=== PATIENT | male | born 1985 | race African-American/Black ===

== ENCOUNTER 2017-03-02 01:32 | Emergency (ER) | payer OTHER ==
[~2017-03-02] VITALS: Ht 177.8 cm; Wt 95.0 kg
[~2017-03-02 01:32] MED LIST: ALBU1AER INH; BENZ100 PO; IBUP800T23 PO; OSEL75 PO; ZOFR4TAB3 SL
[2017-03-02 01:37] VITALS: BP 132/92; PULSE 76; RESP 16; TEMP 98.4; O2SAT 98
[2017-03-02 01:52] VITALS: BP 127/74; PULSE 77; RESP 18; O2SAT 98
[2017-03-02] MEDS ORDERED: SODIUM CHLORIDE 0.9% FLUSH 10 ML FLUSH IVF PRN (02:30)
[2017-03-02] MEDS ORDERED: MORPHINE SULFATE 4 MG/ML INJ IV PUSH ONE (02:30)
[2017-03-02] MEDS ORDERED: SODIUM CHLORID 0.9% 500 ML INJ 500 ML IV ONE (02:30)
[2017-03-02] MEDS ORDERED: ASPIRIN 325 MG TAB PO ONE (02:30)
[2017-03-02] MEDS: NITROGLYCERIN 0.4 MG SL 25 TABS/BTL SL SCH ×3 (02:34→02:55)
[2017-03-02 02:39] VITALS: BP 107/62; PULSE 85; RESP 18
[2017-03-02 02:48] LABS: AUTOMATED NEUTROPHIL # 4.3 TH/MM3 (1.8-7.7); BASOPHIL # 0.1 TH/MM3 (0-0.2); BASOPHIL % 0.8 % (0.0-2.0); EOSINOPHIL # 0.4 TH/MM3 (0-0.4); EOSINOPHIL % 5.6 % (0.0-4.0); HEMATOCRIT 42.1 % (39.0-51.0); HEMO FLAGS DIFF FINAL; LYMPHOCYTE # 2.4 TH/MM3 (1.0-4.8); MEAN CORPUSCULAR HEMOGLOBIN 30.1 PG (27.0-34.0); MEAN CORPUSCULAR HGB CONC 34.2 % (32.0-36.0); MONO % 7.4 % (0.0-8.0); NEUT % 55.2 % (16.0-70.0); PLATELET COUNT 227 TH/MM3 (150-450); RED BLOOD COUNT 4.79 MIL/MM3 (4.50-5.90); RED CELL DISTRIBUTION WIDTH 13.1 % (11.6-17.2); WHITE BLOOD COUNT 7.8 TH/MM3 (4.0-11.0)
[2017-03-02 02:51] VITALS: BP 125/58; PULSE 79; RESP 18
[2017-03-02 03:04] LABS: APTT (PATIENT) 25.4 SEC (24.3-30.1); PROTHROMBIN TIME - PATIENT 11.4 SEC (9.8-11.6)
[2017-03-02 03:05] LABS: ANION GAP 7 MEQ/L (5-15); BLOOD UREA NITROGEN 9 MG/DL (7-18); CHLORIDE 108 MEQ/L (98-107); GLOMERULAR FILTRATION RATE 101 ML/MIN (>89); POTASSIUM 3.5 MEQ/L (3.5-5.1); SODIUM (NA) 142 MEQ/L (136-145)
[2017-03-02 03:08] LABS: CREATINE KINASE 521 U/L (39-308)
--- NOTE | 2017-03-02 03:10 | PD ---
HPI Chief Complaint: Chest Pain Time Seen by Provider: 01:47 Travel History International Travel<30 days: No Contact w/Intl Traveler<30days: No Traveled to known affect area: No History of Present Illness HPI 32-year-old male complains of left chest pain. The onset occurred at rest. He states it is severe. There is radiation to the shoulder and left neck. Duration a few hours. It woke him up from sleep. He denies drugs and alcohol abuse. He denies tobacco. He reports minimal shortness of breath. At most of maximum inspiration he has mild chest pain. No trauma. No excessive exercise. [facility] Past Medical History Medical History: Denies Significant Hx Diminished Hearing: No Influenza Vaccination: No Social History Alcohol Use: Yes Tobacco Use: No Substance Use: No Allergies-Medications (Allergen,Severity, Reaction): Coded Allergies: No Known Allergies (Verified , 03/02/17) Reported Meds & Prescriptions Reported Meds & Active Scripts Active No Active Prescriptions or Reported Medications Review of Systems Except as stated in HPI: all other systems reviewed are Neg Physical Exam Narrative GENERAL: 32 yo M, WNWD, mild distress SKIN: Warm and dry. HEAD: Atraumatic. Normocephalic. EYES: Pupils equal and round. No scleral icterus. No injection or drainage. ENT: No nasal bleeding or discharge. Mucous membranes pink and moist. NECK: Trachea midline. No JVD. CARDIOVASCULAR: Regular rate and rhythm. TTP L chest. RESPIRATORY: No accessory muscle use. Clear to auscultation. Breath sounds equal bilaterally. GASTROINTESTINAL: Abdomen soft, non-tender, nondistended. Hepatic and splenic margins not palpable. MUSCULOSKELETAL: Extremities without clubbing, cyanosis, or edema. No obvious deformities. + Pain with pectoralis flexion. NEUROLOGICAL: Awake and alert. No obvious cranial nerve deficits. Motor grossly within normal limits. Five out of 5 muscle strength in the arms and legs. Normal speech. PSYCHIATRIC: Appropriate mood and affect; insight and judgment normal. Data Data Last Documented VS Vital Signs Date Time Temp Pulse Resp B/P Pulse Ox O2 Delivery O2 Flow Rate FiO2 03/02/17 03:37 79 18 115/68 100 03/02/17 01:52 Room Air 03/02/17 01:37 98.4 VS reviewed Orders Electrocardiogram (03/02/17 02:24) Basic Metabolic Panel (Bmp) (03/02/17 02:24) Ckmb (Isoenzyme) Profile (03/02/17 02:24) Complete Blood Count With Diff (03/02/17 02:24) Magnesium (Mg) (03/02/17 02:24) Prothrombin Time / Inr (Pt) (03/02/17 02:24) Act Partial Throm Time (Ptt) (03/02/17 02:24) Troponin I (03/02/17 02:24) Chest, Single Ap (03/02/17 02:24) Ecg Monitoring (03/02/17 02:24) Iv Access Insert/Monitor (03/02/17 02:24) Oximetry (03/02/17 02:24) Oxygen Administration (03/02/17 02:24) Aspirin (Aspirin) (03/02/17 02:30) Morphine Inj (Morphine Inj) (03/02/17 02:30) Sodium Chloride 0.9% Flush (Ns Flush) (03/02/17 02:30) Nitroglycerin Sl (Nitrostat Sl) (03/02/17 02:30) Sodium Chlorid 0.9% 500 Ml Inj (Ns 500 M (03/02/17 02:30) CKMB (03/02/17 02:30) CKMB% (03/02/17 02:30) Labs Laboratory Tests Test 03/02/17 02:30 White Blood Count 7.8 TH/MM3 Red Blood Count 4.79 MIL/MM3 Hemoglobin 14.4 GM/DL Hematocrit 42.1 % Mean Corpuscular Volume 88.0 FL Mean Corpuscular Hemoglobin 30.1 PG Mean Corpuscular Hemoglobin 34.2 % Concent Red Cell Distribution Width 13.1 % Platelet Count 227 TH/MM3 Mean Platelet Volume 8.7 FL Neutrophils (%) (Auto) 55.2 % Lymphocytes (%) (Auto) 31.0 % Monocytes (%) (Auto) 7.4 % Eosinophils (%) (Auto) 5.6 % Basophils (%) (Auto) 0.8 % Neutrophils # (Auto) 4.3 TH/MM3 Lymphocytes # (Auto) 2.4 TH/MM3 Monocytes # (Auto) 0.6 TH/MM3 Eosinophils # (Auto) 0.4 TH/MM3 Basophils # (Auto) 0.1 TH/MM3 CBC Comment DIFF FINAL Differential Comment Prothrombin Time 11.4 SEC Prothromb Time International 1.0 RATIO Ratio Activated Partial 25.4 SEC Thromboplast Time Sodium Level 142 MEQ/L Potassium Level 3.5 MEQ/L Chloride Level 108 MEQ/L Carbon Dioxide Level 27.0 MEQ/L Anion Gap 7 MEQ/L Blood Urea Nitrogen 9 MG/DL Creatinine 1.03 MG/DL Estimat Glomerular Filtration 101 ML/MIN Rate Random Glucose 90 MG/DL Calcium Level 8.9 MG/DL Magnesium Level 2.0 MG/DL Total Creatine Kinase 521 U/L Creatine Kinase MB 2.0 NG/ML Creatine Kinase MB % 0.4 % Troponin I LESS THAN 0.02 NG/ML MDM Medical Decision Making Medical Screen Exam Complete: Yes Emergency Medical Condition: Yes Medical Record Reviewed: Yes Differential Diagnosis NSTEMI, unstable angina, coronary vasospasm, PE, PTX, aortic dissection, pericarditis, myocarditis, endocarditis, PNA, esophageal disease, aneurysm, musculoskeletal etiologies, anxiety, cocaine/sympathomimetic abuse Narrative Course EKG reveals a sinus rhythm, rate 77 with early repolarization morphology CBC & BMP Diagram 03/02/17 02:30 Tn < 0.02 Last 24 hours Impressions Chest X-Ray 03/02/17 0224 Signed Impressions: Service Date/Time: Thursday, March 02, 2017 02:43 - CONCLUSION: No acute disease. No significant change has occurred. Chris Colvin MD Reassessment at 325AM, the patient is resting comfortably and feels better, is alert and in no distress. The patients results and examination findings were discussed. The repeat examination is unremarkable and benign. The history, exam , diagnostic testing, and current condition do not suggest any significant pathology to warrant further testing, continued ED treatment, admission, or surgical evaluation at this point. The vital signs have been stable. The patient does not have uncontrollable pain, intractable vomiting, or other significant symptoms. The patient's condition is stable and appropriate for discharge. The patient will pursue further outpatient evaluation with a primary care physician or other designated or consulting physician as indicated in the discharge instructions. The patient expressed understanding and was agreeable with this plan. Diagnosis Primary Impression: Chest pain Qualified Code: R07.9 - Chest pain, unspecified type Referrals: Primary Care Physician 2 days Additional Instructions: You have a choice when it comes to health care, and we are glad that you chose [facility]. Hopefully, we have met your expectations on today's visit. You are welcome to return to [facility] at any time, as we are committed to meeting the health care needs of our community. Med/Other Pt SpecificInfo: No Change to Meds Scripts No Active Prescriptions or Reported Meds Disposition: 01 DISCHARGE HOME Condition: Edilberto Andrea MD March 02, 2017 03:10
--- NOTE | 2017-03-02 03:27 | RADRPT ---
EXAM DATE/TIME: 03/02/2017 02:43 [facility] COMPARISON: CHEST SINGLE AP, March 23, 2015, 9:10. INDICATIONS : Chest pains midsternal, shortness of breath. MEDICAL HISTORY : None. SURGICAL HISTORY : None. ENCOUNTER: Initial ACUITY: 2 days PAIN SCORE: 6/10 LOCATION: Bilateral chest FINDINGS: A single view of the chest demonstrates the lungs to be symmetrically aerated without evidence of mas s, infiltrate or effusion. The cardiomediastinal contours are unremarkable. Osseous structures are intact. CONCLUSION: No acute disease. No significant change has occurred. Chris Colvin MD on March 02, 2017 at 3:25 Board Certified Radiologist. This report was verified electronically.
[2017-03-02 03:37] VITALS: BP 115/68
--- NOTE | 2017-03-02 21:08 | EKG ---
Date Performed: 03/02/2017 Time Performed: 01:50:18 PTAGE: 32 years EKG: Sinus rhythm ST ELEVATION, PROBABLY EARLY REPOLARIZATION BORDERLINE ECG PREVIOUS TRACING : 01/02/2010 14.58 Compared to prior tracing no significant change DOCTOR: Isaías Jose Interpretating Date/Time 03/02/2017 21:07:49
== END 2017-03-02 03:55 | disposition home or self-care (01) ==
LOC: NEPC 01:32
DX: R07.9 Chest pain, unspecified (principal); R94.31 Abnormal electrocardiogram [ECG] [EKG]
CPT/HCPCS: 71010; 80048; 82550; 82552; 83735; 84484; 85025; 85610; 85730; 93005; 96361; 96374; 99285; J2270; J7040

== ENCOUNTER 2018-01-01 09:19 | Emergency (ER) | payer OTHER ==
[2018-01-01 09:36] VITALS: BP 114/76; PULSE 79; RESP 16; TEMP 98.1; O2SAT 98
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
[2018-01-01] MEDS ORDERED: IBUP1TAB7 PO (10:39)
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
[2018-01-01] MEDS ORDERED: IBUPROFEN 800 MG TAB PO ONE (10:45)
== END 2018-01-01 11:11 | disposition home or self-care (01) ==
LOC: NEPK 09:19
DX: M23.92 Unspecified internal derangement of left knee (principal)
CPT/HCPCS: 73564; 99283; E0113; L1830

== ENCOUNTER 2018-07-23 00:22 | Observation (INO) ==
--- NOTE | 2018-07-23 03:09 | ED ---
HPI General Chief complaint: Medical Clearance Stated complaint: /Vomit Blood/Cold Symptoms Time Seen by Provider: 07/23/18 03:01 Source: patient Mode of arrival: ambulatory Limitations: no limitations History of Present Illness HPI narrative: The patient is a 33 year old male who presents to the [facility] emergency department with a history of not feeling well for the last 3 days. He reports that he has had a cough, congestion, and body aches. He denies having any fevers. He reports that the cough dry in character up until last night when he coughed up a small amount of blood at 11 PM. He also gagged and vomited. He denies smoking. He denies coughing up any additional blood since then. The patient reports that at that time he also began to have lower abdominal pain in the suprapubic area and pain with urinating. He denies having any penile discharge, testicle pain, testicle swelling. He denies having any new sexual partners. He reports that he uses condoms most of the time. The patient reports that while waiting out in triage she began to have chest pain approximately an hour ago. He reports that the chest pain is a sharp sensation in the center of his chest that is worse with taking a deep breath. He reports that it is associated with shortness of breath. On review of systems otherwise, the patient denies having any radiation of the chest pain , neck pain, diarrhea, or neurologic symptoms. Related Data Home Medications Medication Instructions Recorded Confirmed No Known Home Medications 07/23/18 07/23/18 Allergies Allergy/AdvReac Type Severity Reaction Status Date / Time No Known Allergies Allergy Verified 07/23/18 00:36 Review of Systems ROS: all other systems reviewed are negative [facility] Medical History Medical History Patient denies medical problems (Acute) Surgical History Surgical History Surgical procedure on lower extremity within past 6 months (Acute) Social History Social History Substance History: No History of Abuse Second Hand Smoke Exposure: Yes Smoking Status: Former smoker Tobacco Type: Cigarettes and Cigars How Often Do You Have a Drink Containing Alcohol: Monthly or less Recent Travel in [facility] within the Last 8 Weeks: No Recent Out of Country Travel within the Last 8 Weeks: No Immunization History Tetanus Immunization: Unsure Exam Const General: cooperative, no acute distress and well developed Nutritional Appearance: well nourished Orientation: alert, awake and oriented x3 [facility] Head: normocephalic and atraumatic Nose: no nasal discharge and no epistaxis Mouth: moist mucous membranes Throat: uvula midline and posterior oropharynx abnormal (Mildly erythematous.) Eyes Sclera: normal sclerae Pupils: PERRL EOM: EOM intact bilaterally Neck Neck: no meningeal signs, trachea midline and no JVD Resp Effort & Inspection: no use of accessory muscles Auscultation: clear to auscultation bilaterally Cardio Rate: regular rate Rhythm: regular rhythm Heart Sounds: no murmurs GI Inspection: non-distended Palpation: soft, no hepatosplenomegaly, no guarding, not rigid and tender in the LLQ and suprapubicly; not in the epigastrum, not in the RLQ, not in the LUQ , not in the RUQ, not at McBurney's point, Fontaine's sign negative and with no rebound tenderness Auscultation: normal bowel sounds Back/Spine/Pelvis Back: CVA tenderness (Reportedly on palpation on the right.) Skin General: dry skin (warm) Neuro General: alert, awake, oriented x3 and other (Grossly nonfocal.) Speech: speech normal Motor: no movement abnormalities noted Extrem General: normal to inspection (2+ pulses in all 4 extremities.), calf tenderness , no clubbing, no cyanosis and edema (Trace pedal edema bilaterally which he reports is chronic and no worse than usual.) Psych Mood: congruent mood Affect: normal affect Judgment: judgment good Course Consultations Consultation #1: The patient's case including history, pertinent physical examination findings, and laboratory studies were discussed with Dr. Valenzuela. It was agreed that the patient would be admitted to the hospitalist service. Initial Documented Vital Signs Temperature 98.4 F 07/23/18 00:36 Pulse Rate 103 H 07/23/18 00:36 Respiratory Rate 20 07/23/18 00:36 Blood Pressure 169/98 H 07/23/18 00:36 Pulse Oximetry 97 07/23/18 00:36 Last Documented Vital Signs Temperature 97.8 F 07/23/18 07:00 Pulse Rate 76 07/23/18 07:00 Respiratory Rate 16 07/23/18 07:00 Blood Pressure 140/86 07/23/18 07:00 Pulse Oximetry 98 07/23/18 07:54 Medical Decision Making MDM Narrative Medical decision making narrative: During the course of the patient's emergency department visit, the patient's history, examination, and differential diagnosis were reviewed with the patient. The patient was placed on a monitoring coordinator with oximetry and frequent blood pressure monitoring. The patient had IV access obtained and blood work sent for analysis. A diagnostic evaluation was started regarding the patient's multiple systemic complaints. The patient was initially provided normal saline a 500 mL bolus, Zofran 4 mg IV for nausea. Because of the patient's reported burning with urination, the patient was given a dose of Rocephin 1 g IV, Zithromax 1 g p.o. for coverage of urethritis. Diagnostic studies are remarkable for a CBC that is within normal limits, PT PTT within normal limits, d-dimer elevated at 0.6, therefore CTA to rule out PE was ordered. Chemistry is remarkable for potassium of 3.2, GFR of 80, AST 58, alkaline phosphatase 135, CPK 1576 with a normal MB percent characteristic of rhabdomyolysis, troponin I less than 0.02, BNP is less than 2. Urinalysis showed 30 protein trace ketones rare bacteria, culture not indicated, urine drug screen was negative, GC and Chlamydia were negative, chest x-ray showed no acute abnormality, CTA to rule out PE showed no acute abnormality. Given the patient's rhabdomyolysis. The patient will be admitted to the hospital for continued evaluation and treatment. The patient's results were discussed with the patient, including the plan of care. I explained that further testing and/ or monitoring is indicated based on the patient's history, examination, and/ or laboratory findings. Therefore, I recommended admission for additional evaluation. The patient expressed understanding and was agreeable with this plan. The patient was admitted to the hospital in stable condition and sent to a bed under the care of the [facility] service. Medical Screen Exam Complete: Yes Emergency Medical Condition: Yes Lab Data Result diagrams: 07/23/18 03:45 07/23/18 03:45 Lab Results 07/23/18 07/23/18 07/23/18 Range/Units 03:00 03:00 03:00 WBC (4.0-11.0) th/mm3 RBC (4.50-5.90) mil/mm3 Hgb (13.0-17.0) gm/dL Hct (39.0-51.0) % MCV (80.0-100.0) fL MCH (27.0-34.0) pg MCHC (32.0-36.0) % RDW (11.6-17.2) % Plt Count (150-450) th/mm3 MPV (7.0-11.0) fL Neut % (Auto) (16.0-70.0) % Lymph % (Auto) (9.0-44.0) % [place] % (Auto) (0.0-8.0) % Eos % (Auto) (0.0-4.0) % Baso % (Auto) (0.0-2.0) % Neut # (Auto) (1.8-7.7) th/mm3 Lymph # (Auto) (1.0-4.8) th/mm3 [place] # (Auto) (0.0-0.9) th/mm3 Eos # (Auto) (0.0-0.4) th/mm3 Baso # (Auto) (0.0-0.2) th/mm3 WBC Differential Differential Comment PT (9.8-11.6) sec INR Ratio APTT (24.3-30.1) sec D-Dimer Quant (PE/DVT) (0.00-0.50) mg/L FEU Sodium (136-145) meq/L Potassium (3.5-5.1) meq/L Chloride (98-107) meq/L Carbon Dioxide (21.0-32.0) meq/L Anion Gap (5-15) meq/L BUN (7-18) mg/dL Creatinine (0.60-1.30) mg/dL Estimated GFR (>89) mL/min Random Glucose (74-106) mg/dL Calcium (8.5-10.1) mg/dL Total Bilirubin (0.2-1.0) mg/dL AST (15-37) U/L ALT (12-78) U/L Alkaline Phosphatase (45-117) U/L Total Creatine Kinase (39-308) U/L CK-MB (CK-2) (0.5-3.6) ng/mL CK-MB (CK-2) % (0.0-4.0) % Troponin I (0.02-0.05) ng/mL B-Natriuretic Peptide (0-100) pg/mL Total Protein (6.4-8.2) g/dL Albumin (3.4-5.0) g/dL Lipase (73-393) U/L Urine Color Yellow (Yellw/Straw) Urine Clarity Clear (Clear) Urine pH 6.0 (5.0-8.5) Ur Specific [place] 1.028 (1.002-1.035) Urine Protein 30 H (Neg-Trace) mg/dL Urine Glucose (UA) Negative (Negative) mg/dL Urine Ketones Trace H (Negative) mg/dL Urine Occult Blood Negative (Negative) Urine Nitrate Negative (Negative) Urine Bilirubin Negative (Negative) Urine Urobilinogen 4 or greater (Less than 2) mg/dL Ur Leukocyte Esterase Negative (Negative) Urine RBC 2 (0-3) /hpf Urine WBC 1 (0-5) /hpf Urine Bacteria Rare H (None) /hpf Urine Mucus Few H (Occasional) /lpf Micro UA Comment Culture not ind Ur Microscopic Review Not Reportable Urine Culture Comments Culture not ind Urine Opiates Screen Neg (Neg) Ur Barbiturates Screen Neg (Neg) Ur Amphetamines Screen Neg (Neg) U Benzodiazepines Scrn Neg (Neg) Urine Cocaine Screen Neg (Neg) U Cannabinoids Screen Neg (Neg) Chlam trachomat DNA PCR Not detected (Not Detect) N.gonorrhoeae DNA (PCR) Not detected (Not Detect) 07/23/18 07/23/18 07/23/18 Range/Units 03:45 03:45 03:45 WBC 7.7 (4.0-11.0) th/mm3 RBC 4.69 (4.50-5.90) mil/mm3 Hgb 14.5 (13.0-17.0) gm/dL Hct 42.5 (39.0-51.0) % MCV 90.6 (80.0-100.0) fL MCH 30.8 (27.0-34.0) pg MCHC 34.0 (32.0-36.0) % RDW 13.0 (11.6-17.2) % Plt Count 238 (150-450) th/mm3 MPV 8.6 (7.0-11.0) fL Neut % (Auto) 54.3 (16.0-70.0) % Lymph % (Auto) 25.9 (9.0-44.0) % [place] % (Auto) 9.0 H (0.0-8.0) % Eos % (Auto) 9.7 H (0.0-4.0) % Baso % (Auto) 1.1 (0.0-2.0) % Neut # (Auto) 4.2 (1.8-7.7) th/mm3 Lymph # (Auto) 2.0 (1.0-4.8) th/mm3 [place] # (Auto) 0.7 (0.0-0.9) th/mm3 Eos # (Auto) 0.7 H (0.0-0.4) th/mm3 Baso # (Auto) 0.1 (0.0-0.2) th/mm3 WBC Differential . Differential Comment Auto diff final PT 10.9 (9.8-11.6) sec INR 1.1 Ratio APTT 25.4 (24.3-30.1) sec D-Dimer Quant (PE/DVT) 0.63 H (0.00-0.50) mg/L FEU Sodium 141 (136-145) meq/L Potassium 3.2 L (3.5-5.1) meq/L Chloride 105 (98-107) meq/L Carbon Dioxide 29.2 (21.0-32.0) meq/L Anion Gap 7 (5-15) meq/L BUN 9 (7-18) mg/dL Creatinine 1.25 (0.60-1.30) mg/dL Estimated GFR 80 L (>89) mL/min Random Glucose 78 (74-106) mg/dL Calcium 8.7 (8.5-10.1) mg/dL Total Bilirubin 0.4 (0.2-1.0) mg/dL AST 58 H (15-37) U/L ALT 31 (12-78) U/L Alkaline Phosphatase 135 H (45-117) U/L Total Creatine Kinase 1576 H (39-308) U/L CK-MB (CK-2) 5.7 H (0.5-3.6) ng/mL CK-MB (CK-2) % 0.4 (0.0-4.0) % Troponin I Less than 0.02 L (0.02-0.05) ng/mL B-Natriuretic Peptide (0-100) pg/mL Total Protein 8.5 H (6.4-8.2) g/dL Albumin 3.9 (3.4-5.0) g/dL Lipase 94 (73-393) U/L Urine Color (Yellw/Straw) Urine Clarity (Clear) Urine pH (5.0-8.5) Ur Specific [place] (1.002-1.035) Urine Protein (Neg-Trace) mg/dL Urine Glucose (UA) (Negative) mg/dL Urine Ketones (Negative) mg/dL Urine Occult Blood (Negative) Urine Nitrate (Negative) Urine Bilirubin (Negative) Urine Urobilinogen (Less than 2) mg/dL Ur Leukocyte Esterase (Negative) Urine RBC (0-3) /hpf Urine WBC (0-5) /hpf Urine Bacteria (None) /hpf Urine Mucus (Occasional) /lpf Micro UA Comment Ur Microscopic Review Urine Culture Comments Urine Opiates Screen (Neg) Ur Barbiturates Screen (Neg) Ur Amphetamines Screen (Neg) U Benzodiazepines Scrn (Neg) Urine Cocaine Screen (Neg) U Cannabinoids Screen (Neg) Chlam trachomat DNA PCR (Not Detect) N.gonorrhoeae DNA (PCR) (Not Detect) 07/23/18 Range/Units 03:45 WBC (4.0-11.0) th/mm3 RBC (4.50-5.90) mil/mm3 Hgb (13.0-17.0) gm/dL Hct (39.0-51.0) % MCV (80.0-100.0) fL MCH (27.0-34.0) pg MCHC (32.0-36.0) % RDW (11.6-17.2) % Plt Count (150-450) th/mm3 MPV (7.0-11.0) fL Neut % (Auto) (16.0-70.0) % Lymph % (Auto) (9.0-44.0) % [place] % (Auto) (0.0-8.0) % Eos % (Auto) (0.0-4.0) % Baso % (Auto) (0.0-2.0) % Neut # (Auto) (1.8-7.7) th/mm3 Lymph # (Auto) (1.0-4.8) th/mm3 [place] # (Auto) (0.0-0.9) th/mm3 Eos # (Auto) (0.0-0.4) th/mm3 Baso # (Auto) (0.0-0.2) th/mm3 WBC Differential Differential Comment PT (9.8-11.6) sec INR Ratio APTT (24.3-30.1) sec D-Dimer Quant (PE/DVT) (0.00-0.50) mg/L FEU Sodium (136-145) meq/L Potassium (3.5-5.1) meq/L Chloride (98-107) meq/L Carbon Dioxide (21.0-32.0) meq/L Anion Gap (5-15) meq/L BUN (7-18) mg/dL Creatinine (0.60-1.30) mg/dL Estimated GFR (>89) mL/min Random Glucose (74-106) mg/dL Calcium (8.5-10.1) mg/dL Total Bilirubin (0.2-1.0) mg/dL AST (15-37) U/L ALT (12-78) U/L Alkaline Phosphatase (45-117) U/L Total Creatine Kinase (39-308) U/L CK-MB (CK-2) (0.5-3.6) ng/mL CK-MB (CK-2) % (0.0-4.0) % Troponin I (0.02-0.05) ng/mL B-Natriuretic Peptide Less than 2 (0-100) pg/mL Total Protein (6.4-8.2) g/dL Albumin (3.4-5.0) g/dL Lipase (73-393) U/L Urine Color (Yellw/Straw) Urine Clarity (Clear) Urine pH (5.0-8.5) Ur Specific [place] (1.002-1.035) Urine Protein (Neg-Trace) mg/dL Urine Glucose (UA) (Negative) mg/dL Urine Ketones (Negative) mg/dL Urine Occult Blood (Negative) Urine Nitrate (Negative) Urine Bilirubin (Negative) Urine Urobilinogen (Less than 2) mg/dL Ur Leukocyte Esterase (Negative) Urine RBC (0-3) /hpf Urine WBC (0-5) /hpf Urine Bacteria (None) /hpf Urine Mucus (Occasional) /lpf Micro UA Comment Ur Microscopic Review Urine Culture Comments Urine Opiates Screen (Neg) Ur Barbiturates Screen (Neg) Ur Amphetamines Screen (Neg) U Benzodiazepines Scrn (Neg) Urine Cocaine Screen (Neg) U Cannabinoids Screen (Neg) Chlam trachomat DNA PCR (Not Detect) N.gonorrhoeae DNA (PCR) (Not Detect) Imaging Data Radiologist's impression: Chest X-Ray 07/23/18 02:39 CONCLUSION: No acute cardiopulmonary abnormality is identified. Chest CTA 07/23/18 04:38 CONCLUSION: 1. No PE is identified. 2. No acute finding is identified within the chest to explain the clinical symptoms. ECG Data Attestation: I personally reviewed and interpreted this ECG as follows: Interpretation: The patient had an EKG done on arrival that shows a sinus rhythm heart rate of 82, QRS duration is 90 ms, QTC 403 ms. T waves are inverted in lead III, V2, no acute ST segment elevation. Discharge Plan Discharge Disposition Patient Disposition: 30 Still Patient Discharge Details Diagnosis: Rhabdomyolysis Physicians Team ED Provider: Samira Russell Primary Care Provider: Primary Care Cash,Sherry Attending Provider: Bernadine Suazo Status ED Status: Admitted Observation Patient
[2018-07-23] MEDS ORDERED: Sodium Chlor 0.9% Inj 500 ML IV.SIG ONE (03:10)
--- NOTE | 2018-07-23 03:14 | XR ---
EXAM DATE: 07/23/2018 2:39 AM EDT AGE/SEX: 33 years / Male INDICATIONS: Cough and cold symptoms for a few days. CLINICAL DATA: This is the patient's initial encounter. Patient reports that signs and symptoms have been present for 2 days and indicates a pain score of 3/10. MEDICAL/SURGICAL HISTORY: . Fx tib fib. . Im rebekah removed COMPARISON: [facility] [place], CHEST SINGLE AP, 03/02/2017. . FINDINGS: Portable AP view of the chest demonstrates a normal-sized cardiac silhouette. No effusion, consolidat ion, or pneumothorax is identified. The bones and soft tissues demonstrate no acute finding. CONCLUSION: No acute cardiopulmonary abnormality is identified. Electronically signed by: Raghav Adhikari MD 07/23/2018 3:13 AM EDT
[2018-07-23 03:32] LABS: Bacteria,Urine Rare /hpf; Bilirubin,Urine Negative (Negative); Clarity,Urine Clear (Clear); Color,Urine Yellow (Yellw/Straw); Glucose,Urine (UA) Negative (Negative); Leukocyte Esterase,Urine Negative (Negative); Mucus,Urine Few /lpf (Occasional); Nitrite,Urine Negative (Negative); Specific Gravity,Urine 1.028 (1.002-1.035); Urobilinogen,Urine 4 or Greater mg/dL (Less than 2)
[2018-07-23] MEDS ORDERED: Azithromycin Powder 1 GM Packet PO ONE (03:47)
[2018-07-23 03:55] LABS: Baso # (Auto) 0.1 th/mm3 (0.0-0.2); Baso % (Auto) 1.1 % (0.0-2.0); Eos # (Auto) 0.7 th/mm3 (0.0-0.4); Eos % (Auto) 9.7 % (0.0-4.0); Hematocrit 42.5 % (39.0-51.0); Hemoglobin 14.5 gm/dL (13.0-17.0); Lymph % (Auto) 25.9 % (9.0-44.0); Mean Corpuscular Hemoglobin 30.8 pg (27.0-34.0); Mean Corpuscular Volume 90.6 fL (80.0-100.0); Mean Platelet Volume 8.6 fL (7.0-11.0); Mono # (Auto) 0.7 th/mm3 (0.0-0.9); Neut # (Auto) 4.2 th/mm3 (1.8-7.7); Neut % (Auto) 54.3 % (16.0-70.0); Platelet Count 238 th/mm3 (150-450); Red Blood Count 4.69 mil/mm3 (4.50-5.90); White Blood Count 7.7 th/mm3 (4.0-11.0)
[2018-07-23 04:23] LABS: Albumin 3.9 g/dL (3.4-5.0); Anion Gap 7 meq/L (5-15); Aspartate Aminotransferase 58 U/L (15-37); Blood Urea Nitrogen 9 mg/dL (7-18); Calcium 8.7 mg/dL (8.5-10.1); Carbon Dioxide 29.2 meq/L (21.0-32.0); Chloride 105 meq/L (98-107); Glomerular Filtration Rate 80 mL/min (>89); Glucose,Random 78 mg/dL (74-106); Lipase 94 U/L (73-393); Potassium 3.2 meq/L (3.5-5.1); Sodium 141 meq/L (136-145)
[2018-07-23 04:32] LABS: Activated Partial Thrombo Time 25.4 sec (24.3-30.1); INR 1.1 Ratio; Prothrombin Time 10.9 sec (9.8-11.6)
[2018-07-23 04:33] LABS: D-Dimer 0.63 mg/L FEU (0.00-0.50)
[2018-07-23 04:38] LABS: Alanine Aminotransferase 31 U/L (12-78); Alkaline Phosphatase 135 U/L (45-117); Creatine Kinase 1576 U/L (39-308); Total Protein 8.5 g/dL (6.4-8.2)
[2018-07-23] MEDS ORDERED: Sod Chloride 0.9% Inj 1,000 ML IV.SIG ONE (04:39)
[2018-07-23 04:50] LABS: CKMB Percent 0.4 % (0.0-4.0); Creatine Kinase MB 5.7 ng/mL (0.5-3.6)
[2018-07-23] MEDS ORDERED: Bisacodyl 10 MG Supp RECTAL PRN (06:49)
[2018-07-23 07:00] LABS: Amphetamine Screen,Urine Neg (Neg); Barbiturate Screen,Urine Neg (Neg); Cannabinoid Screen,Urine Neg (Neg); Cocaine Screen,Urine Neg (Neg)
[2018-07-23] MEDS ORDERED: Sod Chloride 0.9% Inj 1,000 ML IV.CONT SCH (07:00)
[2018-07-23 07:01] LABS: Opiate Screen,Urine Neg (Neg)
--- NOTE | 2018-07-23 07:52 | CT ---
EXAM DATE: 07/23/2018 4:52 AM EDT AGE/SEX: 33 years / Male INDICATIONS: Vomit blood. Flu like symptoms. Chest pain. CLINICAL DATA: This is the patient's initial encounter. Patient reports that signs and symptoms have been present for 1 day and indicates a pain score of 7/10. MEDICAL/SURGICAL HISTORY: . . Lower extremity. RADIATION DOSE: 22.09 CTDI (mGy) COMPARISON: No prior exams available for comparison. TECHNIQUE: Volumetric scanning was performed using a multi-row detector CT scanner during bolus infu alan of 75 ml Omnipaque 350 (iohexol) nonionic water-soluble contrast as a single exam dose. The shantelle a was post processed with a variety of visualization algorithms including full volume maximum intensi ty projection and sliding thin slab reformation. Using automated exposure control and adjustment of the mA and/or kV according to patient size, radiation dose was kept as low as reasonably achievable t o obtain optimal diagnostic quality images. DICOM format image data is available electronically for review and comparison. FINDINGS: Pulmonary Arteries: No filling defect is identified through the segmental and some of the subsegmenta l level pulmonary arteries. Lungs: No consolidation or pneumothorax is identified. There is mild dependent atelectasis. Mediastinum: The heart and great vessels demonstrate no acute abnormality. No lymphadenopathy is vis ualized. Pleurae: No pleural effusion or pleural thickening. Axillae: No lymphadenopathy. Musculoskeletal: No acute osseous abnormality is identified. Other: Visualized upper abdominal structures demonstrate no acute abnormality. CONCLUSION: 1. No PE is identified. 2. No acute finding is identified within the chest to explain the clinical symptoms. Electronically signed by: Raghav Adhikari MD 07/23/2018 7:51 AM EDT
--- NOTE | 2018-07-23 08:41 | P.HPIM ---
History of Present Illness Primary Care Physician: No Primary Care Physician Chief Complaint: cough History of Present Illness: patient is a 33 y/o male with no significant past medical history who presented to ER with cough for the past three days. he says that he started to have a dry cough three days ago. he says that yesterday when ' he was forcing to cough, he saw some streaks of blood with the sputum'. he denies any fever, chills,night sweats, weight loss. h says that he had some chest pain two days ago. he denies any nausea,vomiting. he doesn't recall any sick contacts recently. Review of Systems All other systems reviewed negative except as stated in HPI [facility] - History History Provided By: Patient - Medical History Medical History: Medical History (Last Reviewed 07/23/18 @ 08:38 by Bernadine Suazo MD) Patient denies medical problems - Surgical History Surgical History: Surgical History (Last Reviewed 07/23/18 @ 08:38 by Bernadine Suazo MD) Surgical procedure on lower extremity within past 6 months - Family History Family History: Family History (Last Reviewed 07/23/18 @ 08:38 by Bernadine Suazo MD) Other No pertinent family history - Tobacco History Second Hand Smoke Exposure: Yes Tobacco Use In Past 30 Days: Yes Smoking Status: Former smoker Tobacco Type: Cigarettes, Cigars - Alcohol History How Often Do You Have a Drink Containing Alcohol: Monthly or less - Substance Use History Substance History: No History of Abuse - Travel History Recent Travel in the [place] Within the Last 8 Weeks: No Recent Travel Out of the Country Within the Last 8 Weeks: No - Immunization History Tetanus Immunization: Unsure Medications and Allergies Active Medications: Active Medications Al Hydroxide/Mg Hydroxide (Milk Of Magnesia Liq) 30 ml PO Q12H PRN PRN Reason: Mild Constipation Bisacodyl (Dulcolax Supp) 10 mg RECTAL DAILY PRN PRN Reason: SEVERE CONSITIPATION Sodium Chloride (Ns Inj) 1,000 mls @ 125 mls/hr IV.CONT .Q8H [facility] Last Admin: 07/23/18 07:47 Dose: 125 mls/hr Lactulose (Lactulose Liq) 30 ml PO DAILY PRN PRN Reason: SEVERE CONSITIPATION Senna/Docusate Sodium ([place]-Colace) 1 tab PO BID ALEC Sennosides (Senokot) 17.2 mg PO Q12H PRN PRN Reason: Moderate Constipation Sodium Chloride (Ns Flush) 2 ml IV.FLUSH UNSCH PRN PRN Reason: FLUSH AFTER USING IV ACCESS Allergies Allergy/AdvReac Type Severity Reaction Status Date / Time No Known Allergies Allergy Verified 07/23/18 00:36 Home Medications Medication Instructions Recorded Confirmed Type No Known Home Medications 07/23/18 07/23/18 History Exam Vital signs: Vital Signs 07/23/18 00:36 07/23/18 02:29 07/23/18 07:00 Temperature 98.4 F 97.8 F Pulse Rate 103 H 84 76 Respiratory Rate 20 18 16 Blood Pressure 169/98 H 137/78 140/86 Pulse Oximetry 97 96 98 07/23/18 07:54 Temperature Pulse Rate Respiratory Rate Blood Pressure Pulse Oximetry 98 Intake & Output 07/22/18 07/23/18 07/23/18 18:59 06:59 18:59 Intake Total 1600 / 1600 Output Total 600 / 600 Balance 1600 / 1600 -600 / -600 Weight 99.79 kg Intake: IV 1600 / 1600 NS Inj 1,000 ML @ Wide Open IV. 1000 / 1000 SIG BOLUS ONE Rx#:[id number] NS Inj 500 ML @ Wide Open IV. 500 / 500 SIG BOLUS ONE Rx#:[id number] Rocephin Inj 1,000 MG In NS Inj 100 / 100 100 ML @ 200 mls/hr IV.SIG ONCE ONE Rx#:[id number] Output: Urine 600 / 600 Other: # Voids 1 - Constitutional no acute distress - Routine HEENT Exam Eye: Present: PERRL - Routine Neck Exam Present: supple - Routine Chest/Breast/Axilla Exam Chest wall: Present: tenderness - Routine Respiratory Exam Present: CTA bilaterally - Routine Cardiovascular Exam Present: RRR - Routine Abdominal Exam Present: soft - Routine Extremities Exam Comments: no pedal edema. - Routine Neurological Exam Present: alert, oriented X3 Results - Labs CBC & Chem 7: 07/23/18 03:45 07/23/18 03:45 Labs: Short CBC 07/23/18 Range/Units 03:45 WBC 7.7 (4.0-11.0) th/mm3 Hgb 14.5 (13.0-17.0) gm/dL Hct 42.5 (39.0-51.0) % Plt Count 238 (150-450) th/mm3 BMP 07/23/18 03:45 Sodium 141 Potassium 3.2 L Chloride 105 Carbon Dioxide 29.2 BUN 9 Creatinine 1.25 Calcium 8.7 Cardiac Enzymes 07/23/18 Range/Units 03:45 Total Creatine Kinase 1576 H (39-308) U/L CK-MB (CK-2) 5.7 H (0.5-3.6) ng/mL Troponin I Less than 0.02 L (0.02-0.05) ng/mL Liver Function 07/23/18 Range/Units 03:45 Total Bilirubin 0.4 (0.2-1.0) mg/dL AST 58 H (15-37) U/L ALT 31 (12-78) U/L Alkaline Phosphatase 135 H (45-117) U/L Albumin 3.9 (3.4-5.0) g/dL Urine 07/23/18 Range/Units 03:00 Urine Color Yellow (Yellw/Straw) Urine Clarity Clear (Clear) Urine pH 6.0 (5.0-8.5) Ur Specific [place] 1.028 (1.002-1.035) Urine Protein 30 H (Neg-Trace) mg/dL Urine Glucose (UA) Negative (Negative) mg/dL - Imaging Impressions Chest X-Ray 07/23/18 02:39 CONCLUSION: No acute cardiopulmonary abnormality is identified. Chest CTA 07/23/18 04:38 CONCLUSION: 1. No PE is identified. 2. No acute finding is identified within the chest to explain the clinical symptoms. Caprini VTE Risk Assessment Caprini VTE Risk Assessment: No/Low Risk (score <= 1) Caprini Risk Assessment Model: Point Value = 1 Point Value = 2 Point Value = 3 Point Value = 5 Age 41-60 Minor surgery BMI > 25 kg/m2 Swollen legs Varicose veins or History of unexplained or recurrent spontaneous Oral contraceptives or hormone replacement Sepsis (< 1 month) Serious lung disease, including pneumonia (< 1 month) Abnormal pulmonary function Acute myocardial infarction Congestive heart failure (< 1 month) History of inflammatory bowel disease Medical patient at bed rest Age 61-74 Arthroscopic surgery Major open surgery (> 45 min) Laparoscopic surgery (> 45 min) Malignancy Confined to bed (> 72 hours) Immobilizing plaster cast Central venous access Age >= 75 History of VTE Family history of VTE Factor V Leiden Prothrombin [id number] Lupus anticoagulant Anticardiolipin antibodies Elevated serum homocysteine Heparin-induced thrombocytopenia Other congenital or acquired thrombophilia Stroke (< 1 month) Elective arthroplasty Hip, pelvis, or leg fracture Acute spinal cord injury (< 1 month) Prophylaxis Regimen: Total Risk Factor Score Risk Level Prophylaxis Regimen 0-1 Low Early ambulation 2 Moderate Order ONE of the following: *Sequential Compression Device (SCD) *Heparin 5000 units SQ BID 3-4 Higher Order ONE of the following medications: *Heparin 5000 units SQ TID *Enoxaparin/Lovenox 40 mg SQ daily (WT < 150 kg, CrCl > 30 mL/min) *Enoxaparin/Lovenox 30 mg SQ daily (WT < 150 kg, CrCl > 10-29 mL/min) *Enoxaparin/Lovenox 30 mg SQ BID (WT < 150 kg, CrCl > 30 mL/min) AND/OR *Sequential Compression Device (SCD) 5 or more Highest Order ONE of the following medications: *Heparin 5000 units SQ TID (Preferred with Epidurals) *Enoxaparin/Lovenox 40 mg SQ daily (WT < 150 kg, CrCl > 30 mL/min) *Enoxaparin/Lovenox 30 mg SQ daily (WT < 150 kg, CrCl > 10-29 mL/min) *Enoxaparin/Lovenox 30 mg SQ BID (WT < 150 kg, CrCl > 30 mL/min) AND *Sequential Compression Device (SCD) Assessment and Plan - Plan A/P - rhabdomyolysis continue with aggressive IV hydration- monitor the renal function and CPK level. -cough/ questionable hemoptysis CTA with no PE or any other acute abnormality- antitussives as needed. -hypokalemia; will replace. Discussed Condition With: the patient. Discharge Planning: dc home - possible tomorrow if CPK trending down and remains stable.
[2018-07-23] MEDS ORDERED: guaiFENesin/Codeine Syrup 200 MG/20 MG 10 ML UDC PO PRN (08:43)
[2018-07-23] MEDS ORDERED: Senna/Docusate Sodium 8.6/50 MG Tablet PO SCH (09:00)
[2018-07-23 10:16] VITALS: BP 115/75; PULSE 90; RESP 17; TEMP 97.9; O2SAT 98
--- NOTE | 2018-07-23 15:53 | ECG ---
Date Performed: 07/23/2018 Time Performed: 04:33:33 PTAGE: 33 years EKG: Sinus rhythm POSSIBLE RIGHT VENTRICULAR CONDUCTION DELAY BORDERLINE ECG PREVIOUS TRACING : 03/02/2017 01.50 Since the previous tracing, no significant change noted DOCTOR: Festus Mcrae Interpretating Date/Time 07/23/2018 15:52:12
== END 2018-07-23 11:31 | disposition left against medical advice (07) ==
LOC: NEPC 00:22 → NEDA 00:22
PROVIDERS: ADMIT Internal Medicine; ATTEND Internal Medicine